=== PATIENT | male | born 1970 | race Caucasian/White ===

== ENCOUNTER 2016-05-14 23:14 | Observation (INO) | payer OTHER ==
[2016-05-14 23:17] VITALS: BMI 37.8
[2016-05-14] MEDS ORDERED: Albuterol-Ipratrop 3 mg / 0.5 (3 ml) UD ONE (23:20)
--- NOTE | 2016-05-14 23:25 | ED PDOC ---
Arrival/HPI - General Chief Complaint: Shortness Of Breath Time Seen by Provider: 05/14/16 23:15 Historian: Patient - History of Present Illness Narrative History of Present Illness (Text): 05/14/16 23:22 46 y/o male, pmh including htn and asthma, psychiatric history including bipolar disorder, biba c/o coughing and wheezing started today. Pt. stated that he has been coughing throughout the entire day, more severe tonight, coughing with wheezing, no fever or chills, no night sweat, no palpitation, no night sweat, no dizziness, no numbness or tingling, no palpitation, no other medical or psychological complaints. Past Medical History - Provider Review Nursing Documentation Reviewed: Yes - Cardiac Hx Hypertension: Yes - Pulmonary Hx Respiratory Disorders: Yes Hx Asthma: Yes (has home nebulizer machine) Hx Sleep Apnea: Yes - Neurological Hx Neurological Disorder: Yes (gullain barre dx 1999) - HEENT Hx HEENT Disorder: Yes (sinusitis) - Renal Hx Renal Disorder: No - Endocrine/Metabolic Hx Endocrine Disorders: No - Hematological/Oncological Hx Blood Disorders: No - Integumentary Hx Dermatological Disorder: Yes - Musculoskeletal/Rheumatological Hx Falls: No - Gastrointestinal Hx Gastrointestinal Disorders: Yes (obese) - Genitourinary/Gynecological Hx Genitourinary Disorders: No - Psychiatric Hx Psychophysiologic Disorder: Yes Hx Bipolar Disorder: Yes Hx Substance Use: No - Surgical History Other/Comment: deviated septum sx, septoplasty, turbinate reduction, ethmoidectomy - Anesthesia Hx Anesthesia: Yes Hx Anesthesia Reactions: No Hx Malignant Hyperthermia: No Family/Social History - Physician Review Nursing Documentation Reviewed: Yes Family/Social History: Unknown Family HX Smoking Status: Never Smoked Hx Alcohol Use: No Hx Substance Use: No Allergies/Home Meds Allergies/Adverse Reactions: Allergies No Known Allergies Allergy (Verified 05/14/16 23:17) Home Medications: Home Meds Medication Instructions Recorded Confirmed Albuterol Sulfate [Proventil Hfa] 1 dose NEB Q8H PRN 08/01/14 05/14/16 Budesonide/Formoterol Fumarate 1 puff NEB DAILY 08/01/14 05/14/16 [Symbicort 160-4.5 Mcg Inhaler] Divalproex [Depakote ER(ONCE 250 mg PO DAILY 08/01/14 05/14/16 DAILY)] Montelukast [Singulair] 1 tab PO DAILY 08/01/14 05/14/16 buPROPion XL [Wellbutrin XL] 1 tab PO DAILY 08/01/14 05/14/16 Albuterol HFA [Ventolin HFA 90 0.09 mg IH DAILY 04/20/16 05/14/16 mcg/actuation (8 g)] Cyclobenzaprine [Flexeril] 5 mg PO HS PRN 04/20/16 05/14/16 Eszopiclone [Lunesta] 2 mg PO HS 04/20/16 05/14/16 LORazepam [Ativan] 1 mg PO DAILY 04/20/16 05/14/16 Lisinopril/Hydrochlorothiazide 1 each PO DAILY 04/20/16 05/14/16 [Lisinopril-Hctz 20-12.5 mg Tab] Naproxen [Naprosyn Tab] 375 mg PO BID PRN 04/20/16 05/14/16 Review of Systems - Review of Systems Constitutional: absent: Fatigue, Fevers Eyes: absent: Vision Changes ENT: absent: Hearing Changes Respiratory: Cough, Sputum, Wheezing. absent: SOB Cardiovascular: Chest Pain Gastrointestinal: absent: Abdominal Pain, Nausea, Vomiting Musculoskeletal: absent: Arthralgias Skin: absent: Rash, Pruritis Neurological: absent: Headache, Dizziness, Focal Weakness, Gait Changes, Speech Changes, Facial Droop, Disequilibrium, Seizure, Other Physical Exam Vital Signs Temp Pulse Resp BP Pulse Ox 05/15/16 00:18 97.9 F 98 H 19 134/80 93 L 05/14/16 23:31 24 98 05/14/16 23:24 98.7 F 109 H 28 H 127/80 97 - Systems Exam Head: Present: Atraumatic, Normocephalic Pupils: Present: PERRL Extroacular Muscles: Present: EOMI Conjunctiva: Present: Normal Mouth: Present: Moist Mucous Membranes Neck: Present: Normal Range of Motion Respiratory/Chest: Present: Wheezes, Decreased Breath Sounds, Rales, Rhonchi, Other (+decrease aeration bilaterally with wheezing and rhonchi. ). No: Respiratory Distress, Accessory Muscle Use, Retracting, Tachypneic, Tender to Palpation Cardiovascular: Present: Regular Rate and Rhythm, Normal S1, S2. No: Murmurs Abdomen: Present: Normal Bowel Sounds. No: Tenderness, Distention, Peritoneal Signs, Rebound, Guarding Back: Present: Normal Inspection Upper Extremity: Present: Normal Inspection. No: Cyanosis, Edema Lower Extremity: Present: Normal Inspection. No: Edema Neurological: Present: GCS=15, Speech Normal, Motor Func Grossly Intact, Gait Normal, Memory Normal Skin: Present: Warm, Dry, Normal Color. No: Rashes Psychiatric: Present: Alert, Oriented x 3, Normal Insight, Normal Concentration Medical Decision Making ED Course and Treatment: 05/14/16 23:25 -labs -chest x-ray -IV solumedrol/duoneb prn -playground monitor -observe and reassess 05/14/16 23:26 -EKG: Sinus Tachycardia @ 107 BPM, no ST elevation or depression, no T wave inversion compared with previous ekg. -Chest x-ray show no acute findings. -Labs are non-significant except wbc 16.1 from 20s, afebrile, likely stress induced. -Pt. is still hypoxic with no tachycardic, room air saturation around 87%, not stable to be discharged home and will need to be admitted to telemetry for q4hrs nebulizer treatment. -I discussed the case with Dr. Thompson's resident, discussed about the labs/ radiology study. 05/15/16 00:22 -I discussed the case with Dr. thompson and Dr. Noyola, discussed about the labs /radiology studies, agreed on the admission to the tele for further evaluation. Pt. is on the chronic symbicort with steroid which can be partially contribute to the leukopenia. - Critical Care Critical Care Minutes: 30 minutes Critical Care Time: Unstable Narrative Critical Care (Text): 05/15/16 00:32 Pt. presents with tachycardia/tachypnea/hypoxic with decresease aeration and wheezing, IV steroid/magsul/duonebx3/oxygen, playground monitor, closed observation. - Lab Interpretations Lab Results: 05/14/16 23:30 05/14/16 23:30 Lab Results 05/14/16 23:30: WBC 16.1 H D, RBC 4.41, Hgb 13.8 L, Hct 41.2 L, MCV 93.4, MCH 31.3, MCHC 33.5, RDW 14.4, Plt Count 351, MPV 9.8, Gran % 63.2, Lymph % (Auto) 22.7, [place] % (Auto) 5.3, Eos % (Auto) 8.6 H, Baso % (Auto) 0.2, Gran # 10.18 H, Lymph # 3.7 H, [place] # 0.9 H, Eos # 1.4 H, Baso # 0.03, Sodium 139, Potassium 4.0 , Chloride 101, Carbon Dioxide 31, Anion Gap 11, BUN 15, Creatinine 1.0, Est GFR ( Amer) > 60, Est GFR (Non-Af Amer) > 60, Random Glucose 93, Calcium 8.8, Total Bilirubin 0.6, AST 33, ALT 16, Alkaline Phosphatase 111, NT-Pro-B Natriuret Pep 134, Total Protein 8.4 H, Albumin 3.9, Globulin 4.5, Albumin/ Globulin Ratio 0.9 L, Influenza Typ A,B (EIA) Negative for flu a/b I have reviewed the lab results: Yes Interpretation: Abnormal lab values (wbc 16.1 from 20s) - RAD Interpretation Radiology Orders: 05/14/16 23:20 CHEST PORTABLE [RAD] Stat Chest x-ray: no consolidation/effusion/pneumothorax Clean Room Technician: Radiologist - EKG Interpretation EKG Interpretation (Text): 05/14/16 23:26 Sinus Tachycardia @ 107 BPM, no ST elevation or depression, no T wave inversion compared with previous ekg. Interpreted by ED Physician: Yes Type: 12 lead EKG Comparison: Com.w/previous EKG - Medication Orders Current Medication Orders: Albuterol Sulfate (Albuterol 0.042% Inhal Keren (1.25mg/3ml) Ud) 1.25 mg IH Q2H PRN PRN Reason: Shortness of Breath Albuterol/Ipratropium (Duoneb 3 Mg/0.5 Mg (3 Ml) Ud) 3 ml IH [id number] [facility] Last Admin: 05/15/16 13:11 Dose: 3 ML Azithromycin (Zithromax) 250 mg PO DAILY [facility] PRN Reason: Protocol Stop: 05/21/16 10:01 Last Admin: 05/15/16 09:47 Dose: 250 MG Budesonide (Pulmicort Respules) 0.5 mg IH [id number] [facility] Last Admin: 05/15/16 07:17 Dose: 0.5 MG Bupropion HCl (Wellbutrin Xl) 150 mg PO DAILY [facility] Last Admin: 05/15/16 09:47 Dose: 150 MG Clonidine HCl (Catapres) 0.1 mg PO BID PRN PRN Reason: withdrawal Divalproex Sodium (Depakote Er(Once Daily)) 250 mg PO DAILY [place] PRN Reason: Protocol Last Admin: 05/15/16 13:52 Dose: 250 MG Behavioural Document 05/15/16 13:52 TELOL (Rec: 05/15/16 13:53 TELOL [id number] ) Maintenance Maintenance Dose Yes Hydrochlorothiazide (Microzide) 12.5 mg PO DAILY [facility] Last Admin: 05/15/16 09:47 Dose: 12.5 MG Lisinopril (Zestril) 20 mg PO DAILY [facility] Last Admin: 05/15/16 09:47 Dose: 20 MG Lorazepam (Ativan) 1 mg PO Q6H PRN; Protocol PRN Reason: Agitation/Withdrawal Methylprednisolone (Solu-Medrol) 30 mg IVP Q12 [facility] Last Admin: 05/15/16 09:45 Dose: 30 MG IVP Administration Document 05/15/16 09:45 TELOL (Rec: 05/15/16 09:47 TELOL [facility] [id number]) Charges for Administration # of IVP Administrations 1 Montelukast Sodium (Singulair) 10 mg PO DAILY [facility] Last Admin: 05/15/16 09:47 Dose: 10 MG Discontinued Medications Albuterol/Ipratropium (Duoneb 3 Mg/0.5 Mg (3 Ml) Ud) Confirm Administered Dose 3 ml .ROUTE .STK-MED ONE Stop: 05/14/16 23:21 Last Admin: 05/14/16 23:29 Dose: 3 ML Albuterol/Ipratropium (Duoneb 3 Mg/0.5 Mg (3 Ml) Ud) 3 ml IH Q15M [facility] Stop: 05/15/16 00:01 Last Admin: 05/15/16 00:01 Dose: Ceftriaxone Sodium (Rocephin 1 Gram Ivpb) 100 mls @ 200 mls/hr IVPB STAT STA PRN Reason: Protocol Stop: 05/15/16 00:46 Last Admin: 05/15/16 00:31 Dose: 200 MLS/HR eMAR Start Stop Document 05/15/16 00:31 RD (Rec: 05/15/16 00:31 RD [id number]) Intravenous Solution Start Date 05/15/16 Start Time 00:31 End Date 05/15/16 End time 01:01 Total Infusion Time 30 Magnesium Sulfate/Dextrose (Magnesium Sulfate 1 Gm/100 Ml D5w) 100 mls @ 100 mls/hr IVPB ONCE ONE Stop: 05/15/16 01:32 Last Admin: 05/15/16 01:13 Dose: 100 MLS/HR eMAR Start Stop Document 05/15/16 01:13 RD (Rec: 05/15/16 01:13 RD [id number]) Intravenous Solution Start Date 05/15/16 Start Time 01:13 End Date 05/15/16 End time 02:13 Total Infusion Time 60 Methylprednisolone (Solu-Medrol) Confirm Administered Dose 125 mg .ROUTE .STK- MED ONE Stop: 05/14/16 23:23 Last Admin: 05/14/16 23:30 Dose: 125 MG Methylprednisolone (Solu-Medrol) 125 mg IVP STAT STA Stop: 05/14/16 23:21 Last Admin: 05/14/16 23:30 Dose: - PA / CERTIFIED CREDIT COUNSELOR / Resident Statement MD/DO has reviewed & agrees with the documentation as recorded. Disposition/Present on Arrival - Present on Arrival Any Indicators Present on Arrival: No History of DVT/PE: No History of Uncontrolled Diabetes: No Urinary Catheter: No History of Decub. Ulcer: No History Surgical Site Infection Following: None - Disposition Have Diagnosis and Disposition been Completed?: Yes Diagnosis: Asthma exacerbation, Hypoxemia Disposition: HOSPITALIZED Disposition Time: 00:32 Patient Plan: Admission, Telemetry Patient Problems: Current Active Problems Problem Status Diagnosed Asthma exacerbation Acute Hypoxemia Acute Condition: GUARDED
[2016-05-14] MEDS: Albuterol-Ipratrop 3 mg / 0.5 (3 ml) UD IH SCH ×2 (23:30→23:51)
[2016-05-14 23:34] LABS: ADD MANUAL DIFF? NO
[2016-05-14 23:44] LABS: BASO # 0.03 K/mm3 (0.0-2.0); BASO % 0.2 % (0.0-3.0); EOS # 1.4 (0.0-0.7); EOS % 8.6 % (1.5-5.0); GRAN # 10.18 (1.4-6.5); GRAN % 63.2 % (50.0-68.0); HEMATOCRIT 41.2 % (42.0-52.0); LYMPH # 3.7 (1.2-3.4); LYMPH % 22.7 % (22.0-35.0); MEAN CELL VOLUME 93.4 fL (80.0-105.0); MEAN CORPUSCULAR HEMOGLOBIN 31.3 pg (25.0-35.0); MEAN CORPUSCULAR HGB CONC 33.5 g/dl (31.0-37.0); MEAN PLATELET VOLUME 9.8 fl (7.0-11.0); MONO # 0.9 (0.1-0.6); MONO % 5.3 % (1.0-6.0); PLATELET COUNT 351 10^3/uL (120.0-450.0); RED CELL DISTRIBUTION WIDTH 14.4 % (11.5-14.5); WHITE BLOOD COUNT 16.1 10^3/ul (4.5-11.0)
[2016-05-14 23:55] LABS: ALB/GLOB RATIO 0.9 (1.1-1.8); ALKALINE PHOSPHATASE 111 U/L (38-133); ALT/SGPT 16 U/L (7-56); AST/SGOT 33 U/L (15-59); BILIRUBIN,TOTAL 0.6 mg/dL (0.2-1.3); BLOOD UREA NITROGEN 15 mg/dL (7-21); CALCIUM 8.8 mg/dL (8.4-10.5); CARBON DIOXIDE 31 mmol/L (21-33); CHLORIDE 101 mmol/L (98-107); GFR AFRICAN-AMERICAN > 60; GLUCOSE,RANDOM 93 mg/dL (70-110); SODIUM 139 mmol/L (132-148); TOTAL PROTEIN 8.4 g/dL (5.8-8.3)
[2016-05-15] MEDS: Albuterol-Ipratrop 3 mg / 0.5 (3 ml) UD IH SCH ×4 (00:01→21:05)
[2016-05-15] MEDS ORDERED: cefTRIAXone 1 gm 100 ML IVPB STA (00:17)
[2016-05-15] MEDS ORDERED: Albuterol 0.042% Inhal Sol (1.25 mg/3 mL) UD IH PRN (02:44)
--- NOTE | 2016-05-15 03:01 | CP.PCM.HP ---
History of Present Illness - History of Present Illness History of Present Illness: CC: Shortness of breath HPI: This is a 46 yo M with PMH of asthma, HTN, bipolar, and chronic heroin abuse who presents with cough, wheezing, and shortness of breath not resolved with home asthma medication. Per patient, he awoke with the shortness of breath this AM, and used his rescue inhaler without relief. He then used an albuterol nebulizer, which improved the shortness of breath to the point where he no longer felt like he was suffocating, but did not fully resolve it. He used the inhaler, nebulizer, and his home montelukast throughout the day, but symptoms never improved further, and then acutely worsened at night, so he called an ambulance and was brought to the ED. In the ED, he was given a breathing treatment and IV solumedrol, which improved his symptoms, but was noted to desaturate into 80%'s without supplemental O2, even after the treatments. Patient denies pain with inspiration, sense of suffocating or choking, chest pain, nausea/emesis, syncope, diarrhea/constipation, dyuria, or fever/chills. Admits to cough, productive for clear sputum. Also admits to chronic heroin use, snorting (never injected), variable frequency but up to daily use, last used 2 days prior. Denies other illicits, current smoking ( former smoker, quit 5 yrs prior). PMH: as above PSH: septoplasty, antrostomy and ethmoidectomy FHx: Cancer (Father, type unknown, in his 80's) HTN (mother) SHx: Former smoker (for ~5 years total, up to / ppd, quit 5 years ago) Active heroin abuser (snorting, never injecting, last use 2 days ago, variable frequency but up to daily use), denies other illicits/IVDA Denies EtOH PMD: Dr. Rosales Present on Admission - Present on Admission Any Indicators Present on Admission: No History of DVT/PE: No History of Uncontrolled Diabetes: No Review of Systems - Constitutional Constitutional: absent: Chills, Fever, Weakness - EENT Eyes: absent: Blurred Vision, Change in Vision, Spots in Vision, Loss of Vision Ears: absent: Dizziness Nose/Mouth/Throat: absent: Dysphagia, Neck Pain - Cardiovascular Cardiovascular: Dyspnea (shortness of breath to point of feeling like suffocating in AM, improved but not resolved with home albuterol nebulizer, persisting throughout day and worsening at night). absent: Chest Pain, Syncope - Respiratory Respiratory: Cough (productive clear sputum), Dyspnea (shortness of breath to point of feeling like suffocating in AM, improved but not resolved with home albuterol nebulizer, persisting throughout day and worsening at night). absent : Hemoptysis, Pain on Inspiration - Gastrointestinal Gastrointestinal: absent: Abdominal Pain, Constipation, Diarrhea, Nausea, Vomiting - Genitourinary Genitourinary: absent: Difficulty Urinating, Dysuria, Flank Pain, Hematuria - Musculoskeletal Musculoskeletal: absent: Neck Pain, Numbness - Integumentary Integumentary: absent: Pruritus, Rash - Neurological Neurological: absent: Dizziness, Numbness, Focal Weakness, Loss of Vision, Syncope, Other Visual Disturbances - Psychiatric Psychiatric: Anxiety, Other (Hx Bipolar disorder) - Endocrine Endocrine: absent: Fatigue Past Patient History - Past Medical History & Family History Past Medical History?: Yes - Past Social History Smoking Status: Never Smoked - CARDIAC Hx Hypertension: Yes - PULMONARY Hx Respiratory Disorders: Yes Hx Asthma: Yes (has home nebulizer machine) Hx Sleep Apnea: Yes - NEUROLOGICAL Hx Neurological Disorder: Yes (gullain barre dx 2000) - HEENT Hx HEENT Problems: Yes (sinusitis) - RENAL Hx Chronic Kidney Disease: No - ENDOCRINE/METABOLIC Hx Endocrine Disorders: No - HEMATOLOGICAL/ONCOLOGICAL Hx Blood Disorders: No - INTEGUMENTARY Hx Dermatological Problems: Yes - MUSCULOSKELETAL/RHEUMATOLOGICAL Hx Falls: No - GASTROINTESTINAL Hx Gastrointestinal Disorders: Yes (obese) - GENITOURINARY/GYNECOLOGICAL Hx Genitourinary Disorders: No - PSYCHIATRIC Hx Psychophysiologic Disorder: Yes Hx Bipolar Disorder: Yes Hx Substance Use: No - SURGICAL HISTORY Other/Comment: deviated septum sx, septoplasty, turbinate reduction, ethmoidectomy - ANESTHESIA Hx Anesthesia: Yes Hx Anesthesia Reactions: No Hx Malignant Hyperthermia: No Meds Allergies/Adverse Reactions: Allergies Allergy/AdvReac Type Severity Reaction Status Date / Time No Known Allergies Allergy Verified 05/14/16 23:17 Physical Exam - Constitutional Appears: Well, Non-toxic, No Acute Distress - Head Exam Head Exam: ATRAUMATIC, NORMAL INSPECTION, NORMOCEPHALIC - Eye Exam Eye Exam: EOMI, Normal appearance. absent: Conjunctival injection, Scleral icterus Pupil Exam: absent: Irregular, Unequal - ENT Exam ENT Exam: Mucous Membranes Moist - Respiratory Exam Respiratory Exam: Decreased Breath Sounds, Wheezes (diffuse faint end- expiratory wheeze all espinoza), NORMAL BREATHING PATTERN. absent: Accessory Muscle Use, Chest Wall Tenderness, Clear to Auscultation Bilateral, Rales, Rhonchi, Respiratory Distress, Stridor Additional comments: wearing NC, 2L O2, satting 96% on monitor at time of exam - Cardiovascular Exam Cardiovascular Exam: REGULAR RHYTHM, RRR, +S1, +S2 (prominent S2). absent: Bradycardia, Tachycardia, Diastolic murmur, Irregular Rhythm, +S4, Systolic Murmur - GI/Abdominal Exam GI & Abdominal Exam: Normal Bowel Sounds, Soft. absent: Diminished Bowel Sounds , Distended, Firm, Hyperactive Bowel Sounds, Hypoactive Bowel Sounds, Rigid, Tenderness - Extremities Exam Extremities exam: Positive for: normal capillary refill, normal inspection, pedal pulses present. Negative for: calf tenderness, pedal edema, tenderness - Neurological Exam Neurological exam: Alert, Oriented x3 - Psychiatric Exam Psychiatric exam: Normal Affect, Normal Mood - Skin Skin Exam: Dry, Intact, Normal Color, Warm Results - Vital Signs Recent Vital Signs: Last Vital Signs Temp 97.9 F 05/15/16 00:18 Pulse 98 H 05/15/16 00:18 Resp 19 05/15/16 00:18 BP 134/80 05/15/16 00:18 Pulse Ox 93 L 05/15/16 00:18 - Labs Result Diagrams: 05/14/16 23:30 05/14/16 23:30 Labs: Laboratory Results - last 24 hr 05/14/16 23:30 WBC 16.1 H D RBC 4.41 Hgb 13.8 L Hct 41.2 L MCV 93.4 MCH 31.3 MCHC 33.5 RDW 14.4 Plt Count 351 MPV 9.8 Gran % 63.2 Lymph % (Auto) 22.7 [place] % (Auto) 5.3 Eos % (Auto) 8.6 H Baso % (Auto) 0.2 Gran # 10.18 H Lymph # 3.7 H [place] # 0.9 H Eos # 1.4 H Baso # 0.03 Sodium 139 Potassium 4.0 Chloride 101 Carbon Dioxide 31 Anion Gap 11 BUN 15 Creatinine 1.0 Est GFR ( Amer) > 60 Est GFR (Non-Af Amer) > 60 Random Glucose 93 Calcium 8.8 Total Bilirubin 0.6 AST 33 ALT 16 Alkaline Phosphatase 111 NT-Pro-B Natriuret Pep 134 Total Protein 8.4 H Albumin 3.9 Globulin 4.5 Albumin/Globulin Ratio 0.9 L Influenza Typ A,B (EIA) Negative for flu a/b Assessment & Plan - Assessment and Plan (Free Text) Assessment: This is a 46 yo M with PMH of asthma, HTN, bipolar, and chronic heroin abuse who presents with cough, wheezing, and shortness of breath not resolved with home asthma medication. He is being admitted for suspected asthma exacerbation with concurrent O2 desaturations into the 80's not resolved with IV solumedrol and nebulizer treatment. Plan: 1) Shortness of breath with cough and wheezing -Asthma exacerbation vs 2/2 heroin use vs URI vs Pneumonia vs PE -Symptoms improved with IV steroids, Nebulizer treatment, supplemental O2 via NC , and Rocephin IV x1, but still desaturating off of O2 -Hx of prior asthma exacerbations with similar symptoms, never intubated previously -Denies sick contacts, afebrile, CXR clear, so less likely pneumonia, but will cover empirically with Zithromax 250mg PO daily -Less likely PE, no lower extremity swelling/edema/erythema/tenderness, no hx of DVT/PE -Counseled on heroin cessation -Duonebs q6 [place]VER, albuterol nebulizer q2 PRN, Pulmicort 0.5mcg q12, Prednisone 40mg PO daily -Supplemental O2 as necessary, goal is SaO2 > 90% 2) Heroin abuse -UTox ordered -counseled on heroin abuse likely exacerbating asthma/shortness of breath, cessation 3) HTN -continue home HCTZ-Lisinopril 4) Bipolar disorder -continue home Welbutrin and Depakote Dispo: Telemetry obs, pending respiratory treatments and steroids, reassessment after treatment FEN: Heart-healthy diet Access: Peripheral IV Consults: N/A Ppx: Protonix for GI, Heparin for DVT/PE ppx Patient discussed and reviewed with attending, Dr. Villegas. - Date & Time Date: 05/15/16 Time: 03:21 Decision To Admit - Pt Status Changed To: Hospital Disposition Of: Observation - . Bed Request Type: Telemetry
[2016-05-15] MEDS: Budesonide 0.5 mg/2 ml Inhal Susp UD IH SCH (07:17)
--- NOTE | 2016-05-15 08:27 | RAD ---
HISTORY: cough and wheezing COMPARISON: Chest x-ray performed 04/20/16 TECHNIQUE: Chest, one view. FINDINGS: Examination limited by habitus. LUNGS: No focal consolidation. Please note that chest x-ray has limited sensitivity for the detection of pulmonary masses. PLEURA: No significant pleural effusion identified. No definite pneumothorax . CARDIOVASCULAR: The cardiomediastinal silhouette appears within normal limits of size. OSSEOUS STRUCTURES: Degenerative changes of the spine. VISUALIZED UPPER ABDOMEN: Unremarkable. OTHER FINDINGS: None. IMPRESSION: No focal consolidation, significant pleural effusion, or definite pneumothorax identified.
[2016-05-15] MEDS: MethylPREDNISolone 40 mg Vial IVP SCH ×2 (09:45→21:20)
[2016-05-15] MEDS ORDERED: Divalproex 250 mg ER (ONCE DAILY formulation) PO SCH (10:00)
[2016-05-15] MEDS ORDERED: buPROPion 150 mg/24 Hours XL Tab PO SCH (10:00)
[2016-05-15 10:01] LABS: ADD MANUAL DIFF? NO
[2016-05-15 10:06] LABS: BASO # 0.02 K/mm3 (0.0-2.0); BASO % 0.2 % (0.0-3.0); EOS # 0.6 (0.0-0.7); EOS % 4.8 % (1.5-5.0); GRAN # 8.06 (1.4-6.5); GRAN % 70.9 % (50.0-68.0); HEMATOCRIT 38.5 % (42.0-52.0); LYMPH # 2.2 (1.2-3.4); LYMPH % 19.7 % (22.0-35.0); MEAN CELL VOLUME 94.6 fL (80.0-105.0); MEAN CORPUSCULAR HGB CONC 32.7 g/dl (31.0-37.0); MEAN PLATELET VOLUME 9.7 fl (7.0-11.0); MONO # 0.5 (0.1-0.6); MONO % 4.4 % (1.0-6.0); PLATELET COUNT 275 10^3/uL (120.0-450.0); RED CELL DISTRIBUTION WIDTH 14.5 % (11.5-14.5); WHITE BLOOD COUNT 11.4 10^3/ul (4.5-11.0)
--- NOTE | 2016-05-15 10:11 | CARD ---
APPROVED REPORT EKG Measurement Heart [id number] <Conclusion> Sinus tachycardia RVCD NSSTW changes, no change
[2016-05-15 10:22] LABS: ALB/GLOB RATIO 0.9 (1.1-1.8); ALKALINE PHOSPHATASE 110 U/L (38-133); ALT/SGPT 14 U/L (7-56); AST/SGOT 19 U/L (15-59); BILIRUBIN,TOTAL 0.5 mg/dL (0.2-1.3); BLOOD UREA NITROGEN 15 mg/dL (7-21); CALCIUM 8.8 mg/dL (8.4-10.5); CARBON DIOXIDE 28 mmol/L (21-33); CHLORIDE 100 mmol/L (98-107); GFR AFRICAN-AMERICAN > 60; GLUCOSE,RANDOM 201 mg/dL (70-110); MAGNESIUM 2.4 mg/dL (1.7-2.2); PHOSPHOROUS 3.8 mg/dL (2.5-4.5); POTASSIUM 3.8 mmol/L (3.6-5.0); SODIUM 137 mmol/L (132-148); TOTAL PROTEIN 7.1 g/dL (5.8-8.3)
[2016-05-15 11:58] VITALS: RESP 20
[2016-05-16] MEDS: Albuterol-Ipratrop 3 mg / 0.5 (3 ml) UD IH SCH ×2 (02:27→07:23)
[2016-05-16 06:09] VITALS: BP 110/62; PULSE 61; TEMP 97.3; O2SAT 99
[2016-05-16] MEDS: Budesonide 0.5 mg/2 ml Inhal Susp UD IH SCH (07:23)
--- NOTE | 2016-05-16 10:09 | CP.PCM.PCO ---
Addendum Addendum: 05/16/16 10:08 I met with patient at bedside. Patient is alert and well-oriented to month, year , location & circumstances. He does not appear to be any distress and he is responsive to questioning. Thought process is coherent and responses are relevant and consistent. Patient was not aware that a psychiatric consultation was requested for him. At this time he defers on this intervention indicating that he would prefer to focus on his medical care. Patient is coherent and denies any perceptual disturbance. Patient denies any acute mood issues, wishes, suicidal thoughts or thoughts to harm others. He indicates that current medications of Depakote and Wellbutrin are beneficial. He denies any issues with these medications and prefers to continue with them at current doses. Patient was informed that if he should change his mind about engaging in psychiatric care while he's being medically treated on the unit he may request psychiatric follow-up at any time. Patient expresses this understanding. Psychiatry respects patient's wishes at this time and will sign off as he does not appear to be a danger to himself or others due to suicidal or homicidal thoughts, florid psychosis or disorganization.
--- NOTE | 2016-05-16 10:42 | CP.PCM.DIS ---
Provider - Provider Date of Admission: 05/15/16 00:29 Attending physician: Vero Adrian MD Primary care physician: Martha Rosales MD Time Spent in preparation of Discharge (in minutes): 25 Diagnosis - Discharge Diagnosis (1) Asthma exacerbation Status: Acute (2) Substance abuse Status: Acute (3) Hypertension Status: Chronic Hospital Course - Lab Results Lab Results: Most Recent Lab Values WBC 11.4 10^3/ul (4.5-11.0) H D 05/15/16 09:30 RBC 4.07 10^6/uL (3.5-6.1) 05/15/16 09:30 Hgb 12.6 gm/dL (14.0-18.0) L 05/15/16 09:30 Hct 38.5 % (42.0-52.0) L 05/15/16 09:30 MCV 94.6 fL (80.0-105.0) 05/15/16 09:30 MCH 31.0 pg (25.0-35.0) 05/15/16 09:30 MCHC 32.7 g/dl (31.0-37.0) 05/15/16 09:30 RDW 14.5 % (11.5-14.5) 05/15/16 09:30 Plt Count 275 10^3/uL (120.0-450.0) 05/15/16 09:30 MPV 9.7 fl (7.0-11.0) 05/15/16 09:30 Gran % 70.9 % (50.0-68.0) H 05/15/16 09:30 Lymph % (Auto) 19.7 % (22.0-35.0) L 05/15/16 09:30 [place] % (Auto) 4.4 % (1.0-6.0) 05/15/16 09:30 Eos % (Auto) 4.8 % (1.5-5.0) 05/15/16 09:30 Baso % (Auto) 0.2 % (0.0-3.0) 05/15/16 09:30 Gran # 8.06 (1.4-6.5) H 05/15/16 09:30 Lymph # 2.2 (1.2-3.4) 05/15/16 09:30 [place] # 0.5 (0.1-0.6) 05/15/16 09:30 Eos # 0.6 (0.0-0.7) 05/15/16 09:30 Baso # 0.02 K/mm3 (0.0-2.0) 05/15/16 09:30 Sodium 137 mmol/L (132-148) 05/15/16 09:30 Potassium 3.8 mmol/L (3.6-5.0) 05/15/16 09:30 Chloride 100 mmol/L (98-107) 05/15/16 09:30 Carbon Dioxide 28 mmol/L (21-33) 05/15/16 09:30 Anion Gap 13 (10-20) 05/15/16 09:30 BUN 15 mg/dL (7-21) 05/15/16 09:30 Creatinine 0.8 mg/dL (0.5-1.4) 05/15/16 09:30 Est GFR ( Amer) > 60 05/15/16 09:30 Est GFR (Non-Af Amer) > 60 05/15/16 09:30 Random Glucose 201 mg/dL (70-110) H 05/15/16 09:30 Calcium 8.8 mg/dL (8.4-10.5) 05/15/16 09:30 Phosphorus 3.8 mg/dL (2.5-4.5) 05/15/16 09:30 Magnesium 2.4 mg/dL (1.7-2.2) H 05/15/16 09:30 Total Bilirubin 0.5 mg/dL (0.2-1.3) 05/15/16 09:30 AST 19 U/L (15-59) 05/15/16 09:30 ALT 14 U/L (7-56) 05/15/16 09:30 Alkaline Phosphatase 110 U/L (38-133) 05/15/16 09:30 NT-Pro-B Natriuret Pep 134 pg/mL (0-450) 05/14/16 23:30 Total Protein 7.1 g/dL (5.8-8.3) 05/15/16 09:30 Albumin 3.5 g/dL (3.0-4.8) 05/15/16 09:30 Globulin 3.7 gm/dL 05/15/16 09:30 Albumin/Globulin Ratio 0.9 (1.1-1.8) L 05/15/16 09:30 Influenza Typ A,B (EIA) Negative for flu a/b (NEGATIVE) 05/14/16 23:30 - Hospital Course Hospital Course: This is a 46 year old male with past medical history of asthma, hypertension, and chronic heroin abuse who presented with shortness of breath secondary to asthma exacerbation. He also admitted to snorting heroin recently. He was started on iv steroids and duonebs with improvement of symptoms. He was counselled on risks of continued substance abuse. He was seen by psychiatry today as well. Today he appeared comfortable. He had faint wheezing much improved. Plan was to discharge him this afternoon after him morning dose of steroids and nebs. However I was informed by the nurse he eloped after rounds. Security and police were notified as he still had the heplock. Call was made to his spouse and message was left. Prognosis is guarded given history of substance abuse. Discharge Diagnoses: 1) asthma exacerbation 2) substance abuse 3) hypertension Discharge Exam - Head Exam Head Exam: ATRAUMATIC, NORMAL INSPECTION, NORMOCEPHALIC - Eye Exam Eye Exam: EOMI - ENT Exam ENT Exam: Normal Exam - Neck Exam Neck exam: Full Rom - Respiratory Exam Respiratory Exam: Wheezes (faint). absent: Rales, Rhonchi - Cardiovascular Exam Cardiovascular Exam: REGULAR RHYTHM, +S1, +S2 - GI/Abdominal Exam GI & Abdominal Exam: Normal Bowel Sounds. absent: Organomegaly, Soft, Tenderness - Extremities Exam Extremities exam: normal inspection - Neurological Exam Neurological exam: Alert, Oriented x3 - Psychiatric Exam Psychiatric exam: Normal Affect, Normal Mood Discharge Plan - Follow Up Plan Condition: GUARDED Disposition: AGAINST MEDICAL ADVICE Additional Instructions: Patient eloped
== END 2016-05-16 10:43 | disposition left against medical advice (07) ==
LOC: ED 23:14 → ERH 05-15 00:29 → 2RNO 05-15 03:06 → 2RSO 05-15 05:45
PROVIDERS: ADMIT Internal Medicine; ATTEND Internal Medicine
DX: J45.901 Unspecified asthma with (acute) exacerbation (principal); I10 Essential (primary) hypertension; R09.02 Hypoxemia; F11.10 Opioid abuse, uncomplicated; F31.9 Bipolar disorder, unspecified; Z87.891 Personal history of nicotine dependence
CPT/HCPCS: 36415; 71010; 80053; 83735; 83880; 84100; 85025; 87804; 93005; 94640; 96365; 96367; 99285; G0378; J0696; J2920; J2930; J3475

== ENCOUNTER 2017-07-20 03:00 | Observation (INO) | payer MEDICAID, OTHER ==
[2017-07-20 03:01] VITALS: BMI 37.8
--- NOTE | 2017-07-20 03:15 | ED PDOC ---
Arrival/HPI - General Chief Complaint: Shortness Of Breath Time Seen by Provider: 07/20/17 03:03 Historian: Patient - History of Present Illness Narrative History of Present Illness (Text): 07/20/17 03:12 47 year old male, whose past medical history includes asthma, who presents to the emergency department complaining of shortness of breath for the last couple days. Patient notes he started a new medication, propanolol, prescribed by is psychologist. Patient notes he took the new medication before bed and woke up wheezing. Patient describes the feeling as asthma experiences he's had in the past. Patient denies any fever, chills, chest pain, nausea, vomiting, diarrhea, back pain, neck pain, headache, dizziness, or any other complaints. Time/Duration: < week Symptom Onset: Gradual Symptom Course: Unchanged Activities at Onset: Light Context: Home Past Medical History - Provider Review Nursing Documentation Reviewed: Yes - Cardiac Hx Cardiac Disorders: No Hx Hypertension: Yes - Pulmonary Hx Asthma: Yes (has home nebulizer machine) Hx Sleep Apnea: Yes - Neurological HX Cerebrovascular Accident: No Hx Seizures: No - HEENT Hx HEENT Disorder: No (sinusitis) - Renal Hx Renal Disorder: No - Endocrine/Metabolic Hx Endocrine Disorders: No - Hematological/Oncological Hx Blood Disorders: No Hx Cancer: No - Integumentary Hx Dermatological Disorder: No - Musculoskeletal/Rheumatological Hx Musculoskeletal Disorders: No Hx Falls: No - Gastrointestinal Hx Gastrointestinal Disorders: No (obese) - Genitourinary/Gynecological Hx Genitourinary Disorders: No Hx Sexually Transmitted Diseases: No - Psychiatric Hx Anxiety: Yes Hx Bipolar Disorder: Yes Hx Depression: Yes Hx Substance Use: No - Surgical History Other/Comment: deviated septum sx, septoplasty, turbinate reduction, ethmoidectomy - Anesthesia Hx Anesthesia: Yes Hx Anesthesia Reactions: No Hx Malignant Hyperthermia: No Family/Social History - Physician Review Nursing Documentation Reviewed: Yes Family/Social History: Unknown Family HX Smoking Status: Never Smoked Hx Alcohol Use: No Hx Substance Use: No Allergies/Home Meds Allergies/Adverse Reactions: Allergies No Known Allergies Allergy (Verified 07/20/17 03:11) Home Medications: Home Meds Medication Instructions Recorded Confirmed Albuterol Sulfate [Proventil Hfa] 1 dose NEB Q8H PRN 08/01/14 07/20/17 Lisinopril/Hydrochlorothiazide 1 each PO DAILY 04/20/16 07/20/17 [Lisinopril-Hctz 20-12.5 mg Tab] oxyCODONE 15 mg pe PO Q8 PRN 12/09/16 07/20/17 Propranolol [Propranolol HCl] 10 mg PO BID 07/20/17 07/20/17 Review of Systems - Physician Review All systems were reviewed & negative as marked: Yes - Review of Systems Constitutional: Normal Eyes: Normal ENT: Normal Respiratory: SOB Cardiovascular: Normal Gastrointestinal: Normal. absent: Abdominal Pain, Diarrhea, Nausea, Vomiting Genitourinary Male: Normal. absent: Dysuria, Frequency Musculoskeletal: Normal. absent: Back Pain, Neck Pain Skin: Normal. absent: Rash Neurological: Normal. absent: Headache, Dizziness Endocrine: Normal Hemo/Lymphatic: Normal Psychiatric: Normal Physical Exam - Physical Exam Narrative Physical Exam (Text): 07/20/17 03:16 Constitutional: No acute distress. Head: Normocephalic. Atraumatic. Eyes: PERRL. ENT: Moist mucous membranes. Neck: Supple. Cardiovascular: Regular rate. Chest: No tenderness. Respiratory: Diffused wheezing. GI: Soft. Nontender. Nondistended. Back: No CVA tenderness. Musculoskeletal: No tenderness or swelling of extremities. Skin: No rash. Neurologic: Alert, no focal deficit. Vital Signs Temp Pulse Resp BP Pulse Ox 07/20/17 04:35 98.0 F 77 20 111/73 96 07/20/17 03:15 20 97 07/20/17 03:07 82 24 141/101 H 95 Medical Decision Making ED Course and Treatment: 07/20/17 03:17 Impression: 47 year old male presents to the emergency department complaining of shortness of breath over the past couple days, that worsened s/p taking new medication. Plan: -- Chest X-ray -- Labs -- Duoneb -- SOLU-Medrol -- Reassess and disposition Progress Notes: 07/20/17 03:22 Chest X-ray reviewed, shows no consolidation. 07/20/17 04:39 EKG reviewed, shows NSR at [address]/T wave changes. Patient continues to feel short of breath with wheezing. Dr. Jeronimo accepts patient to hospitalist service. - Lab Interpretations Lab Results: 07/20/17 03:15 07/20/17 03:15 Lab Results 07/20/17 03:15: Sodium 144, Potassium 3.9, Chloride 108 H, Carbon Dioxide 23, Anion Gap 18, BUN 24 H, Creatinine 1.2, Est GFR ( Amer) > 60, Est GFR ( Non-Af Amer) > 60, Random Glucose 108, Calcium 9.0, Total Bilirubin 0.2, AST 32 , ALT 27, Alkaline Phosphatase 86, Total Protein 7.6, Albumin 4.1, Globulin 3.5 , Albumin/Globulin Ratio 1.2 07/20/17 03:15: WBC 11.7 H, RBC 4.60, Hgb 14.4, Hct 41.8 L, MCV 90.9, MCH 31.3, MCHC 34.4, RDW 12.7, Plt Count 375, MPV 10.1, Gran % 58.3, Lymph % (Auto) 26.7, [place] % (Auto) 5.1, Eos % (Auto) 9.2 H, Baso % (Auto) 0.7, Gran # 6.81 H, Lymph # (Auto) 3.1, [place] # (Auto) 0.6, Eos # (Auto) 1.1 H, Baso # (Auto) 0.08 - RAD Interpretation Radiology Orders: 07/20/17 03:12 CHEST PORTABLE [RAD] Stat - Medication Orders Current Medication Orders: Acetaminophen (Tylenol 325mg Tab) 650 mg PO Q6H PRN PRN Reason: Fever >100.4 F Albuterol/Ipratropium (Duoneb 3 Mg/0.5 Mg (3 Ml) Ud) 3 ml IH [id number] [facility] Albuterol/Ipratropium (Duoneb 3 Mg/0.5 Mg (3 Ml) Ud) 3 ml IH Q2H PRN PRN Reason: Shortness of Breath Divalproex Sodium (Depakote Dr(*Bid*)) 500 mg PO BID [facility] Heparin Sodium (Porcine) (Heparin) 5,000 units SC Q12 [facility] PRN Reason: Protocol Hydrochlorothiazide (Microzide) 12.5 mg PO DAILY [facility] Lisinopril (Zestril) 20 mg PO DAILY [facility] Methylprednisolone (Solu-Medrol) 40 mg IVP Q12 [facility] Pantoprazole Sodium (Protonix Ec Tab) 40 mg PO 0600 [facility] Last Admin: 07/20/17 05:39 Dose: 40 mg Discontinued Medications Albuterol/Ipratropium (Duoneb 3 Mg/0.5 Mg (3 Ml) Ud) 3 ml IH Q15M [facility] Stop: 07/20/17 03:46 Last Admin: 07/20/17 03:44 Dose: 3 ml Methylprednisolone (Solu-Medrol) 125 mg IVP STAT STA Stop: 07/20/17 03:13 Last Admin: 07/20/17 03:23 Dose: 125 mg IVP Administration Document 07/20/17 03:23 AD (Rec: 07/20/17 03:23 AD [id number]) Charges for Administration # of IVP Administrations 1 - Scribe Statement The provider has reviewed the documentation as recorded by the Scribomi Lozano All medical record entries made by the Jasminibomi were at my direction and personally dictated by me. I have reviewed the chart and agree that the record accurately reflects my personal performance of the history, physical exam, medical decision making, and the department course for this patient. I have also personally directed, reviewed, and agree with the discharge instructions and disposition. Disposition/Present on Arrival - Present on Arrival Any Indicators Present on Arrival: No History of DVT/PE: No History of Uncontrolled Diabetes: No Urinary Catheter: No History of Decub. Ulcer: No History Surgical Site Infection Following: None - Disposition Have Diagnosis and Disposition been Completed?: Yes Diagnosis: Asthma exacerbation Disposition: HOSPITALIZED Disposition Time: 04:00 Patient Plan: Observation, Telemetry Condition: GUARDED
[2017-07-20] MEDS: Albuterol-Ipratrop 3 mg / 0.5 (3 ml) UD IH SCH ×6 (03:23→20:45)
[2017-07-20 03:55] LABS: BASO # 0.08 K/mm3 (0.0-2.0); BASO % 0.7 % (0.0-3.0); EOS # 1.1 (0.0-0.7); EOS % 9.2 % (1.5-5.0); GRAN # 6.81 (1.4-6.5); GRAN % 58.3 % (50.0-68.0); HEMOGLOBIN 14.4 g/dL (14.0-18.0); LYMPH # 3.1 (1.2-3.4); LYMPH % 26.7 % (22.0-35.0); MEAN CELL VOLUME 90.9 fl (80.0-105.0); MEAN CORPUSCULAR HEMOGLOBIN 31.3 pg (25.0-35.0); MEAN CORPUSCULAR HGB CONC 34.4 g/dl (31.0-37.0); MEAN PLATELET VOLUME 10.1 fl (7.0-11.0); MONO # 0.6 (0.1-0.6); MONO % 5.1 % (1.0-6.0); RBC 4.6 10^6/uL (3.5-6.1); RED CELL DISTRIBUTION WIDTH 12.7 % (11.5-14.5); WHITE BLOOD COUNT 11.7 10^3/ul (4.5-11.0)
[2017-07-20 03:56] LABS: ALB/GLOB RATIO 1.2 (1.1-1.8); ALBUMIN 4.1 g/dL (3.0-4.8); ALT/SGPT 27 U/L (7-56); AST/SGOT 32 U/L (17-59); BLOOD UREA NITROGEN 24 mg/dL (7-21); GFR AFRICAN-AMERICAN > 60; GFR NON-AFRICAN AMERICAN > 60
[2017-07-20] MEDS ORDERED: Albuterol-Ipratrop 3 mg / 0.5 (3 ml) UD IH PRN (04:38)
--- NOTE | 2017-07-20 05:01 | CP.PCM.HP ---
<Zelalem Will - Last Filed: 07/20/17 04:51> History of Present Illness - History of Present Illness History of Present Illness: Mr. Moreno is a 47 year old male with a past medical history significant for asthma, HTN, prior heroin abuse, bipolar disorder and depression who presents with worsening SOB and wheezing after taking newly prescribed propanolol. Patient reports that for the past several days he has had mild SOB and wheezing that has been moderately controlled with at home albuterol treatments. He was seen by his psychiatrist yesterday and was started on propanolol for insomnia. Patient took one dose of this medication before falling asleep last night and awoke early this morning with worsened SOB and wheezing. He tried using his inhaler with no relief and decided to be seen in the ED. He denies any fevers, chills, headache, rhinorrhea, sore throat, chest pain, cough, sputum production , abdominal pain, N/V/D/C, changes in urine output, skin changes or any numbness /tingling/weakness of any extremity. PMH: As stated above PSH: Septoplasty, antrostomy and ethmoidectomy Family History: Grandmother-Asthma Social History: Former tobacco user (1 year pack smoking history) and former heroin use; Denies alcohol abuse; Disabled; Lives with in [place] Allergies: NKDA Home Medications: As per MAR Present on Admission - Present on Admission Any Indicators Present on Admission: No Review of Systems - Review of Systems Review of Systems: As per HPI, otherwise negative Past Patient History - Infectious Disease Hx of Infectious Diseases: None - Tetanus Immunizations Tetanus Immunization: Unknown - Past Medical History & Family History Past Medical History?: Yes - Past Social History Smoking Status: Never Smoked - CARDIAC Hx Cardiac Disorders: No Hx Hypertension: Yes - PULMONARY Hx Asthma: Yes (has home nebulizer machine) Hx Sleep Apnea: Yes - NEUROLOGICAL HX Cerebrovascular Accident: No Hx Seizures: No - HEENT Hx HEENT Problems: No (sinusitis) - RENAL Hx Chronic Kidney Disease: No - ENDOCRINE/METABOLIC Hx Endocrine Disorders: No - HEMATOLOGICAL/ONCOLOGICAL Hx Blood Disorders: No Hx Cancer: No - INTEGUMENTARY Hx Dermatological Problems: No - MUSCULOSKELETAL/RHEUMATOLOGICAL Hx Musculoskeletal Disorders: No Hx Falls: No - GASTROINTESTINAL Hx Gastrointestinal Disorders: No (obese) - GENITOURINARY/GYNECOLOGICAL Hx Genitourinary Disorders: No Hx Sexually Transmitted Disorders: No - PSYCHIATRIC Hx Anxiety: Yes Hx Bipolar Disorder: Yes Hx Depression: Yes Hx Substance Use: No - SURGICAL HISTORY Other/Comment: deviated septum sx, septoplasty, turbinate reduction, ethmoidectomy - ANESTHESIA Hx Anesthesia: Yes Hx Anesthesia Reactions: No Hx Malignant Hyperthermia: No Meds Allergies/Adverse Reactions: Allergies Allergy/AdvReac Type Severity Reaction Status Date / Time No Known Allergies Allergy Verified 07/20/17 03:11 Physical Exam - Constitutional Appears: Non-toxic, No Acute Distress - Head Exam Head Exam: ATRAUMATIC, NORMOCEPHALIC - Eye Exam Eye Exam: EOMI, Normal appearance - ENT Exam ENT Exam: Mucous Membranes Moist, Normal Exam, Normal Oropharynx - Neck Exam Neck exam: Positive for: Full Rom, Normal Inspection. Negative for: Lymphadenopathy, Meningismus, Tenderness, Thyromegaly - Respiratory Exam Respiratory Exam: Wheezes (Diffuse; End expiratory), NORMAL BREATHING PATTERN. absent: Accessory Muscle Use, Chest Wall Tenderness, Decreased Breath Sounds, Clear to Auscultation Bilateral, Prolonged Expiratory Phase, Rales, Rhonchi, Respiratory Distress, Stridor - Cardiovascular Exam Cardiovascular Exam: REGULAR RHYTHM, RRR, +S1, +S2. absent: Bradycardia, Tachycardia, Clicks, Diastolic murmur, Gallop, Irregular Rhythm, JVD, Rubs, +S4 , Systolic Murmur - GI/Abdominal Exam GI & Abdominal Exam: Normal Bowel Sounds, Soft. absent: Tenderness - Extremities Exam Extremities exam: Positive for: full ROM, normal capillary refill, normal inspection, pedal pulses present. Negative for: calf tenderness, joint swelling , pedal edema, tenderness - Back Exam Back exam: NORMAL INSPECTION - Neurological Exam Neurological exam: Alert, Oriented x3 - Psychiatric Exam Psychiatric exam: Normal Affect, Normal Mood - Skin Skin Exam: Dry, Intact, Normal Color, Warm Results - Vital Signs Recent Vital Signs: Last Vital Signs Temp 98.0 F 07/20/17 04:35 Pulse 77 07/20/17 04:35 Resp 20 07/20/17 04:35 BP 111/73 07/20/17 04:35 Pulse Ox 96 07/20/17 04:35 - Labs Result Diagrams: 07/20/17 03:15 07/20/17 03:15 Assessment & Plan - Assessment and Plan (Free Text) Assessment: 47 year old male with a past medical history significant for asthma, HTN, prior heroin abuse, bipolar disorder and depression who presents with worsening SOB and wheezing after taking newly prescribed propanolol. Plan: 1. Asthma Exacerbation -Chest X-Ray pending official radiologist interpretation but without gross changes from previous study -Duonebs Q4 scheduled and Q2 PRN -IV Solu-Medrol 40mg Q12 -Tylenol PRN for fever -Recommend discontinuation of Propanolol 2. History of HTN -Continue home Lisinopril/HCTZ 3. History of Bipolar Disorder/Depression -Continue home Depakote GI Prophylaxis: Protonix PO DVT Prophylaxis: Heparin SC Patient seen and case discussed with attending, Dr. Awan. Goff PGY1 - Date & Time Date: 07/20/17 Time: 05:04 Decision To Admit - Pt Status Changed To: Hospital Disposition Of: Observation - . Bed Request Type: Telemetry <Gerardo Mejía - Last Filed: 07/20/17 17:09> Results - Vital Signs Recent Vital Signs: Last Vital Signs Temp 98.8 F 07/20/17 12:00 Pulse 77 07/20/17 14:00 Resp 20 07/20/17 12:00 BP 139/85 07/20/17 12:00 Pulse Ox 92 L 07/20/17 08:39 - Labs Result Diagrams: 07/20/17 03:15 07/20/17 03:15 Assessment & Plan - Assessment and Plan (Free Text) Assessment: Patient seen and examined this morning with the residents. Agree with the plan above Patient admitted for acute asthma exacerbation attributed to Propranolol; feeling better with improvement of wheezing on physical exam c/w iv solumedrol and will transition to PO tapering steroids, duonebs Discontinue Propranolol
[2017-07-20] MEDS ORDERED: Pantoprazole 40 mg EC Tab PO SCH (06:00)
--- NOTE | 2017-07-20 08:54 | RAD ---
HISTORY: Dyspnea. COMPARISON: 05/15/2016 FINDINGS: LUNGS: No active pulmonary disease. PLEURA: No significant pleural effusion identified, no pneumothorax apparent. CARDIOVASCULAR: No radiographic findings to suggest acute or significant cardiovascular disease. OSSEOUS STRUCTURES: No significant abnormalities. VISUALIZED UPPER ABDOMEN: Normal. OTHER FINDINGS: None. IMPRESSION: No active disease. No significant interval change compared to the prior examination(s).
[2017-07-20] MEDS: Divalproex 500 mg DR(BID formulation) PO SCH ×2 (10:11→17:44)
[2017-07-20] MEDS: MethylPREDNISolone 40 mg Vial IVP SCH ×2 (10:12→21:27)
[2017-07-20] MEDS: guaiFENesin-Codeine 100-10mg/5ml Syrup (5 ml) UD PO SCH ×3 (10:12→17:44)
--- NOTE | 2017-07-20 12:12 | CARD ---
APPROVED REPORT EKG Measurement Heart [id number] <Conclusion> Normal sinus rhythm Normal ECG
[2017-07-20] MEDS: Arformoterol 15 mcg/2 ml Inh Sol IH SCH (20:45)
[2017-07-20] MEDS: Budesonide 0.5 mg/2 ml Inhal Susp UD IH SCH (20:45)
[2017-07-21] MEDS: Albuterol-Ipratrop 3 mg / 0.5 (3 ml) UD IH SCH ×6 (00:45→21:57)
[2017-07-21 07:21] LABS: BASO # 0.01 K/mm3 (0.0-2.0); BASO % 0.1 % (0.0-3.0); GRAN # 13.48 (1.4-6.5); HEMOGLOBIN 13.5 g/dL (14.0-18.0); LYMPH # 1.9 (1.2-3.4); LYMPH % 11.9 % (22.0-35.0); MEAN CELL VOLUME 90.1 fl (80.0-105.0); MEAN CORPUSCULAR HGB CONC 34.4 g/dl (31.0-37.0); MONO # 0.5 (0.1-0.6); RBC 4.36 10^6/uL (3.5-6.1); RED CELL DISTRIBUTION WIDTH 12.7 % (11.5-14.5); WHITE BLOOD COUNT 15.9 10^3/ul (4.5-11.0)
[2017-07-21 07:33] LABS: BLOOD UREA NITROGEN 20 mg/dL (7-21); CALCIUM 9.4 mg/dL (8.4-10.5); GFR AFRICAN-AMERICAN > 60; GFR NON-AFRICAN AMERICAN > 60
[2017-07-21] MEDS: Arformoterol 15 mcg/2 ml Inh Sol IH SCH ×2 (07:43→21:57)
[2017-07-21] MEDS: Budesonide 0.5 mg/2 ml Inhal Susp UD IH SCH ×2 (07:44→21:58)
[2017-07-21] MEDS: Divalproex 500 mg DR(BID formulation) PO SCH ×2 (09:10→17:06)
[2017-07-21] MEDS: MethylPREDNISolone 40 mg Vial IVP SCH ×2 (09:11→21:38)
--- NOTE | 2017-07-21 11:38 | CP.PCM.PN ---
<Fer Newell - Last Filed: 07/21/17 12:44> Subjective - Date & Time of Evaluation Date of Evaluation: 07/21/17 Time of Evaluation: 07:35 - Subjective Subjective: Medicine Note for Dr. Basilio Patient seen and examined at bedside. No acute event overnight. Patient was using CPAP while sleeping. He admits to wheezing still but states that it has dramatically improved. He denies chest pain or SOB. Patient is tolerating regular diet and having BMs. He denies fever/chills. Objective - Vital Signs/Intake and Output Vital Signs (last 24 hours): Temp Pulse Resp BP Pulse Ox 98.0 F 73 20 100/50 L 95 07/21/17 05:33 07/21/17 10:00 07/21/17 05:33 07/21/17 05:33 07/21/17 05:33 Intake and Output: 07/21/17 07/21/17 06:59 18:59 Intake Total 0 Balance 0 - Medications Medications: Current Medications Albuterol/Ipratropium (Duoneb 3 Mg/0.5 Mg (3 Ml) Ud) 3 ml IH [id number] [facility] Last Admin: 07/21/17 07:44 Dose: 3 ml Arformoterol Tartrate (Brovana) 15 mcg IH [id number] [facility] Last Admin: 07/21/17 07:43 Dose: 15 mcg Budesonide (Pulmicort Respules) 0.5 mg IH [id number] [facility] Last Admin: 07/21/17 07:44 Dose: 0.5 mg Divalproex Sodium (Depjames Dr(*Bid*)) 500 mg PO BID [facility] Last Admin: 07/21/17 09:10 Dose: 500 mg Heparin Sodium (Porcine) (Heparin) 5,000 units SC Q8 [facility] PRN Reason: Protocol Last Admin: 07/21/17 05:12 Dose: 5,000 units Hydrochlorothiazide (Microzide) 12.5 mg PO DAILY [facility] Last Admin: 07/21/17 09:10 Dose: 12.5 mg Lisinopril (Zestril) 20 mg PO DAILY [facility] Last Admin: 07/21/17 09:10 Dose: 20 mg Methylprednisolone (Solu-Medrol) 40 mg IVP Q12 [facility] Last Admin: 07/21/17 09:11 Dose: 40 mg - Labs Labs: 07/21/17 07:00 07/21/17 07:00 APTT 28.6 Seconds (25.1-36.5) 07/21/17 07:00 - Constitutional Appears: No Acute Distress - Head Exam Head Exam: ATRAUMATIC, NORMOCEPHALIC - Eye Exam Eye Exam: EOMI, Normal appearance Pupil Exam: PERRL - ENT Exam ENT Exam: Mucous Membranes Moist - Neck Exam Neck Exam: Normal Inspection - Respiratory Exam Respiratory Exam: Wheezes, NORMAL BREATHING PATTERN. absent: Accessory Muscle Use, Respiratory Distress - Cardiovascular Exam Cardiovascular Exam: REGULAR RHYTHM, +S1, +S2 - GI/Abdominal Exam GI & Abdominal Exam: Soft, Normal Bowel Sounds. absent: Tenderness - Extremities Exam Extremities Exam: Normal Capillary Refill Additional comments: no cyanosis noted - Back Exam Back Exam: absent: CVA tenderness (L), CVA tenderness (R) - Neurological Exam Neurological Exam: Alert, Awake, CN II-XII Intact, Oriented x3 - Psychiatric Exam Psychiatric exam: Normal Affect, Normal Mood - Skin Skin Exam: Dry, Intact, Normal Color, Warm. absent: Cyanosis Assessment and Plan - Assessment and Plan (Free Text) Assessment: 47 year old male with a past medical history significant for asthma, HTN, prior heroin abuse, bipolar disorder and depression who presents with worsening SOB and wheezing after taking newly prescribed propanolol. Plan: 1. Asthma Exacerbation -Duonebs INH Q4 scheduled and Q2 PRN -Solu-Medrol 40mg IVP Q12 -Brovanna and Pulmicort added -Tylenol PRN for fever -Recommend discontinuation of Propanolol 2. History of HTN -Continue home Lisinopril/HCTZ 3. History of Bipolar Disorder/Depression -Continue home Depakote 4. KITTY - Continue CPAP at night GI Prophylaxis: Protonix PO DVT Prophylaxis: Heparin SC Patient seen and case discussed with Dr. Praful Newell PGY1 <Isabel Basilio - Last Filed: 07/21/17 15:50> Objective - Vital Signs/Intake and Output Vital Signs (last 24 hours): Temp Pulse Resp BP Pulse Ox 98.4 F 66 19 95/54 L 95 07/21/17 11:50 07/21/17 11:50 07/21/17 11:50 07/21/17 11:50 07/21/17 05:33 Intake and Output: 07/21/17 07/21/17 06:59 18:59 Intake Total 0 480 Balance 0 480 - Medications Medications: Current Medications Albuterol/Ipratropium (Duoneb 3 Mg/0.5 Mg (3 Ml) Ud) 3 ml IH [id number] [facility] Last Admin: 07/21/17 11:45 Dose: 3 ml Arformoterol Tartrate (Brovana) 15 mcg IH [id number] [facility] Last Admin: 07/21/17 07:43 Dose: 15 mcg Budesonide (Pulmicort Respules) 0.5 mg IH [id number] [facility] Last Admin: 07/21/17 07:44 Dose: 0.5 mg Divalproex Sodium (Depakote Dr(*Bid*)) 500 mg PO BID [facility] Last Admin: 07/21/17 09:10 Dose: 500 mg Heparin Sodium (Porcine) (Heparin) 5,000 units SC Q8 [facility] PRN Reason: Protocol Last Admin: 07/21/17 14:35 Dose: 5,000 units Hydrochlorothiazide (Microzide) 12.5 mg PO DAILY [facility] Last Admin: 07/21/17 09:10 Dose: 12.5 mg Lisinopril (Zestril) 20 mg PO DAILY [facility] Last Admin: 07/21/17 09:10 Dose: 20 mg Methylprednisolone (Solu-Medrol) 40 mg IVP Q12 [facility] Last Admin: 07/21/17 09:11 Dose: 40 mg - Labs Labs: 07/21/17 07:00 07/21/17 07:00 APTT 28.6 Seconds (25.1-36.5) 07/21/17 07:00 Attending/Attestation - Attestation I have personally seen and examined this patient.: Yes I have fully participated in the care of the patient.: Yes I have reviewed all pertinent clinical information, including history, physical exam and plan: Yes Notes (Text): I have seen and examined the patient at bedside. Agree with the above note with the following additions/ exceptions: Briefly this is 47 year old male with history of asthma, HTN, history of heroin abuse, bipolar disorder, depression and anxiety who came for management of asthma exacerbation.Etiology was most likely beta mirtha induced bronchoconstriction. Continue IV steroids taper and duonebs. Continue other meds. Follow up with obgyn as an outpatient. Upon discharge patient will follow up with Dr Rosales.
[2017-07-22] MEDS: Albuterol-Ipratrop 3 mg / 0.5 (3 ml) UD IH SCH ×4 (00:30→11:09)
[2017-07-22 00:31] VITALS: RESP 20
[2017-07-22] MEDS: Arformoterol 15 mcg/2 ml Inh Sol IH SCH (07:53)
[2017-07-22] MEDS: Budesonide 0.5 mg/2 ml Inhal Susp UD IH SCH (07:54)
[2017-07-22 08:18] VITALS: O2SAT 97
[2017-07-22 09:28] LABS: HEMOGLOBIN 13.4 g/dL (14.0-18.0); MEAN CELL VOLUME 91.7 fl (80.0-105.0); MEAN CORPUSCULAR HGB CONC 33.8 g/dl (31.0-37.0); MEAN PLATELET VOLUME 9.8 fl (7.0-11.0); RBC 4.32 10^6/uL (3.5-6.1); RED CELL DISTRIBUTION WIDTH 12.7 % (11.5-14.5); WHITE BLOOD COUNT 10.8 10^3/ul (4.5-11.0)
[2017-07-22 09:38] LABS: BLOOD UREA NITROGEN 21 mg/dL (7-21); CALCIUM 8.8 mg/dL (8.4-10.5); GFR AFRICAN-AMERICAN > 60; GFR NON-AFRICAN AMERICAN > 60
[2017-07-22] MEDS: MethylPREDNISolone 40 mg Vial IVP SCH (09:41)
[2017-07-22] MEDS: Divalproex 500 mg DR(BID formulation) PO SCH (09:41)
--- NOTE | 2017-07-22 10:13 | CP.PCM.DIS ---
<Melanie Delacruz - Last Filed: 07/22/17 10:12> Provider - Provider Date of Admission: 07/21/17 15:38 Attending physician: Isabel Basilio MD Primary care physician: Martha Rosales MD Consults: None Time Spent in preparation of Discharge (in minutes): 35 Hospital Course - Lab Results Lab Results: Most Recent Lab Values WBC 10.8 10^3/ul (4.5-11.0) D 07/22/17 09:15 RBC 4.32 10^6/uL (3.5-6.1) 07/22/17 09:15 Hgb 13.4 g/dL (14.0-18.0) L 07/22/17 09:15 Hct 39.6 % (42.0-52.0) L 07/22/17 09:15 MCV 91.7 fl (80.0-105.0) 07/22/17 09:15 MCH 31.0 pg (25.0-35.0) 07/22/17 09:15 MCHC 33.8 g/dl (31.0-37.0) 07/22/17 09:15 RDW 12.7 % (11.5-14.5) 07/22/17 09:15 Plt Count 315 10^3/uL (120.0-450.0) 07/22/17 09:15 MPV 9.8 fl (7.0-11.0) 07/22/17 09:15 Gran % 85.0 % (50.0-68.0) H 07/21/17 07:00 Lymph % (Auto) 11.9 % (22.0-35.0) L 07/21/17 07:00 [place] % (Auto) 3.0 % (1.0-6.0) 07/21/17 07:00 Eos % (Auto) 0.0 % (1.5-5.0) L 07/21/17 07:00 Baso % (Auto) 0.1 % (0.0-3.0) 07/21/17 07:00 Gran # 13.48 (1.4-6.5) H 07/21/17 07:00 Lymph # (Auto) 1.9 (1.2-3.4) 07/21/17 07:00 [place] # (Auto) 0.5 (0.1-0.6) 07/21/17 07:00 Eos # (Auto) 0.0 (0.0-0.7) 07/21/17 07:00 Baso # (Auto) 0.01 K/mm3 (0.0-2.0) 07/21/17 07:00 APTT 28.6 Seconds (25.1-36.5) 07/21/17 07:00 Sodium 141 mmol/L (132-148) 07/22/17 09:15 Potassium 4.1 mmol/L (3.6-5.0) 07/22/17 09:15 Chloride 99 mmol/L (98-107) 07/22/17 09:15 Carbon Dioxide 28 mmol/L (21-33) 07/22/17 09:15 Anion Gap 18 (10-20) 07/22/17 09:15 BUN 21 mg/dL (7-21) 07/22/17 09:15 Creatinine 1.1 mg/dl (0.8-1.5) 07/22/17 09:15 Est GFR ( Amer) > 60 07/22/17 09:15 Est GFR (Non-Af Amer) > 60 07/22/17 09:15 Random Glucose 197 mg/dL (70-110) H 07/22/17 09:15 Calcium 8.8 mg/dL (8.4-10.5) 07/22/17 09:15 Total Bilirubin 0.2 mg/dL (0.2-1.3) 07/20/17 03:15 AST 32 U/L (17-59) 07/20/17 03:15 ALT 27 U/L (7-56) 07/20/17 03:15 Alkaline Phosphatase 86 U/L (38-126) 07/20/17 03:15 Total Protein 7.6 g/dL (5.8-8.3) 07/20/17 03:15 Albumin 4.1 g/dL (3.0-4.8) 07/20/17 03:15 Globulin 3.5 gm/dL 07/20/17 03:15 Albumin/Globulin Ratio 1.2 (1.1-1.8) 07/20/17 03:15 - Hospital Course Hospital Course: 47M with a past medical history significant for asthma, HTN, prior heroin abuse , bipolar disorder and depression who presents with worsening SOB and wheezing after taking newly prescribed propanolol. Patient reports that for the past several days he has had mild SOB and wheezing that has been moderately controlled with at home albuterol treatments. He was seen by his psychiatrist yesterday and was started on propanolol for insomnia. Patient took one dose of this medication before falling asleep last night and awoke early this morning with worsened SOB and wheezing. He tried using his inhaler with no relief and decided to be seen in the ED. He denies any fevers, chills, headache, rhinorrhea , sore throat, chest pain, cough, sputum production, abdominal pain, N/V/D/C, changes in urine output, skin changes or any numbness/tingling/weakness of any extremity. Pt admitted for asthma exacerbation, started on duonebs, steroids. Discontinued propranolol. Continued home meds for HTN, bipolar d/c. Pt with improvement of symptoms during hospital course. Pt stable, at baseline. Ready for discharge home on new meds to control asthma symptoms and instructions to stop propranolol , to follow up with PMD and psychiatry. Diagnoses Bipolar disorder Depression Asthma exacerbation - Date & Time of H&P Date of H&P: 07/20/17 Time of H&P: 04:51 Discharge Exam - Head Exam Head Exam: ATRAUMATIC, NORMAL INSPECTION, NORMOCEPHALIC - Eye Exam Eye Exam: EOMI, Normal appearance - ENT Exam ENT Exam: Mucous Membranes Moist, Normal Exam - Neck Exam Neck exam: Full Rom, Normal Inspection - Respiratory Exam Respiratory Exam: Wheezes (mild, bilateral), NORMAL BREATHING PATTERN. absent: Chest Wall Tenderness, Prolonged Expiratory Phase, Rales, Rhonchi, Respiratory Distress - Cardiovascular Exam Cardiovascular Exam: REGULAR RHYTHM, +S1, +S2 - GI/Abdominal Exam GI & Abdominal Exam: Normal Bowel Sounds, Soft, Unremarkable. absent: Tenderness - Extremities Exam Extremities exam: normal inspection - Neurological Exam Neurological exam: Alert, CN II-XII Intact, Oriented x3 - Psychiatric Exam Psychiatric exam: Normal Affect, Normal Mood - Skin Skin Exam: Dry, Intact, Normal Color, Warm Discharge Plan - Discharge Medications Prescriptions: Fluticasone/Salmeterol 250/50 [Advair Diskus] 2 puff IH Q12 #1 puff Montelukast [Singulair] 10 mg PO DAILY #30 tab predniSONE [Prednisone] See Taper PO DAILY #12 tab - Follow Up Plan Condition: STABLE Disposition: HOME/ ROUTINE Instructions: Asthma, Adult (DC), Avoiding Asthma Triggers, Inhalers, Medicines for Asthma, Rescue vs Controller Inhalers, Asthma (DC) Additional Instructions: Please take all new prescriptions as written. The prescriptions were electronically transmitted to the pharmacy you specified. Please follow up with your psychiatrist and primary care doctor in the next 1-2 weeks. Do not take the propranolol. If you have a recurrence of symptoms, please return to the hospital. Referrals: Martha Rosales MD [Primary Care Provider] - <Gerardo Mejía - Last Filed: 07/22/17 10:34> Provider - Provider Date of Admission: 07/21/17 15:38 Attending physician: Isabel Basilio MD Primary care physician: Martha Rosales MD Hospital Course - Lab Results Lab Results: Most Recent Lab Values WBC 10.8 10^3/ul (4.5-11.0) D 07/22/17 09:15 RBC 4.32 10^6/uL (3.5-6.1) 07/22/17 09:15 Hgb 13.4 g/dL (14.0-18.0) L 07/22/17 09:15 Hct 39.6 % (42.0-52.0) L 07/22/17 09:15 MCV 91.7 fl (80.0-105.0) 07/22/17 09:15 MCH 31.0 pg (25.0-35.0) 07/22/17 09:15 MCHC 33.8 g/dl (31.0-37.0) 07/22/17 09:15 RDW 12.7 % (11.5-14.5) 07/22/17 09:15 Plt Count 315 10^3/uL (120.0-450.0) 07/22/17 09:15 MPV 9.8 fl (7.0-11.0) 07/22/17 09:15 Gran % 85.0 % (50.0-68.0) H 07/21/17 07:00 Lymph % (Auto) 11.9 % (22.0-35.0) L 07/21/17 07:00 [place] % (Auto) 3.0 % (1.0-6.0) 07/21/17 07:00 Eos % (Auto) 0.0 % (1.5-5.0) L 07/21/17 07:00 Baso % (Auto) 0.1 % (0.0-3.0) 07/21/17 07:00 Gran # 13.48 (1.4-6.5) H 07/21/17 07:00 Lymph # (Auto) 1.9 (1.2-3.4) 07/21/17 07:00 [place] # (Auto) 0.5 (0.1-0.6) 07/21/17 07:00 Eos # (Auto) 0.0 (0.0-0.7) 07/21/17 07:00 Baso # (Auto) 0.01 K/mm3 (0.0-2.0) 07/21/17 07:00 APTT 28.6 Seconds (25.1-36.5) 07/21/17 07:00 Sodium 141 mmol/L (132-148) 07/22/17 09:15 Potassium 4.1 mmol/L (3.6-5.0) 07/22/17 09:15 Chloride 99 mmol/L (98-107) 07/22/17 09:15 Carbon Dioxide 28 mmol/L (21-33) 07/22/17 09:15 Anion Gap 18 (10-20) 07/22/17 09:15 BUN 21 mg/dL (7-21) 07/22/17 09:15 Creatinine 1.1 mg/dl (0.8-1.5) 07/22/17 09:15 Est GFR ( Amer) > 60 07/22/17 09:15 Est GFR (Non-Af Amer) > 60 07/22/17 09:15 Random Glucose 197 mg/dL (70-110) H 07/22/17 09:15 Calcium 8.8 mg/dL (8.4-10.5) 07/22/17 09:15 Total Bilirubin 0.2 mg/dL (0.2-1.3) 07/20/17 03:15 AST 32 U/L (17-59) 07/20/17 03:15 ALT 27 U/L (7-56) 07/20/17 03:15 Alkaline Phosphatase 86 U/L (38-126) 07/20/17 03:15 Total Protein 7.6 g/dL (5.8-8.3) 07/20/17 03:15 Albumin 4.1 g/dL (3.0-4.8) 07/20/17 03:15 Globulin 3.5 gm/dL 07/20/17 03:15 Albumin/Globulin Ratio 1.2 (1.1-1.8) 07/20/17 03:15 Attending/Attestation - Attestation I have personally seen and examined this patient.: Yes I have fully participated in the care of the patient.: Yes I have reviewed all pertinent clinical information, including history, physical exam and plan: Yes Notes (Text): Patient seen and examined. Agree with above Clinically much improved, minimal wheezing Tapering PO steroids on d/c in addition to Advair/Singulair. Continue with Albuterol as necessary. Discontinuation of Propranolol and f/u with psych as necessary
[2017-07-22 10:42] VITALS: PULSE 72
[2017-07-22 12:11] VITALS: BP 97/61; TEMP 97.6
== END 2017-07-22 12:25 | disposition home or self-care (01) ==
LOC: ED 03:00 → ERH 04:14 → 2RSO 05:21 → OBSVTOIN 07-21 15:38 → INTOOBSV 07-21 15:38
PROVIDERS: ADMIT Internal Medicine; ATTEND Hospitalist
DX: J45.901 Unspecified asthma with (acute) exacerbation (principal); F31.9 Bipolar disorder, unspecified; G47.30 Sleep apnea, unspecified; G47.00 Insomnia, unspecified; I10 Essential (primary) hypertension; Z87.891 Personal history of nicotine dependence; Z82.5 Family history of asthma and other chronic lower respiratory diseases
CPT/HCPCS: 36415; 71045; 80048; 80053; 85025; 85027; 85730; 93005; 94640; 94660; 94760; 96374; 97116; 97161; 99285; G0378; G8978; G8979; G8980; J1644; J2920; J2930